=== PATIENT | female | born 1945 | race Caucasian/White ===

== ENCOUNTER → 2018-01-06 | Outpatient (CLI) | payer MEDICARE, BC ==
--- NOTE | 2018-01-07 08:52 | CT ---
EXAMINATION TYPE: CT thor lumbar spine wo con DATE OF EXAM: 01/06/2018 COMPARISON: Lumbar spine x-ray May 27, 2014 HISTORY: Patient complains of chronic mid to low back pain. 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 Other idiopathic sc oliosis. All per order. CT DLP: 675.4 mGycm Automated exposure control for dose reduction was used. CT scan of the thoracic and lumbar spine are performed without contrast. FINDINGS: Osseous structures are demineralized. There is exaggerated thoracic kyphosis. There is levoconvex sco liosis centered in the upper to midthoracic spine. No acute fracture or dislocation is seen. There is mild superior plate height loss T12 level presumed chronic. Spinal canal is grossly preserved. No la rge posterior disc herniations are seen. No significant spurring is identified. Review of axial images shows no significant spinal canal stenosis or neural foraminal narrowing at an y level in the thoracic spine. There is medial bibasilar linear scarring as well as small to moderate size hiatal hernia. There are 2 calculi measuring up to 3 mm in size and right kidney seen best mitch nal image 37. There is ectatic and atherosclerotic thoracic aorta. There are 5 lumbar-type vertebra identified. There is mild height loss involving superior L2, L4, and L5 endplates. No acute fracture is seen. Osseous structures are demineralized. Spinal canal is gross ly preserved on sagittal images without prominent disc herniation. No significant spurring is seen. T here is levoconvex scoliotic curvature centered in the lower lumbar spine. Disc space heights are kera ntained. Review of axial images shows mild uncovertebral facet arthropathy L4-L5 and L5-S1 levels worse on the right side. Spinal canal is grossly preserved. Bilateral neural foramina are patent. No suspicious r etroperitoneal findings are seen. IMPRESSION: DEMINERALIZATION WITH SCOLIOTIC CURVATURE AND MILD CHRONIC COMPRESSION TYPE DEFORMITIES T12, L2, L4, AND L5 LEVELS. NONOBSTRUCTING RIGHT-SIDED RENAL CALCULI INCIDENTALLY NOTED.
== END | disposition home or self-care (01) ==
LOC: RADCTMAIN 10:43
PROVIDERS: ATTEND Physical Medicine & Rehabilitation
DX: M43.8X5 Other specified deforming dorsopathies, thoracolumbar region (principal); M81.0 Age-related osteoporosis without current pathological fracture; M41.85 Other forms of scoliosis, thoracolumbar region
CPT/HCPCS: 72128; 72131

== ENCOUNTER → 2018-02-19 | Outpatient (CLI) | payer MEDICARE, BC ==
--- NOTE | 2018-02-20 07:29 | XR ---
EXAMINATION TYPE: XR KUB DATE OF EXAM: 02/19/2018 COMPARISON: none HISTORY: Pain TECHNIQUE: Single supine KUB image of the abdomen is obtained FINDINGS: Small bowel demonstrates no evidence for dilatation or air fluid levels. Gas and fecal material is seen in non-distended colon. No convincing evidence for pneumoperitoneum. No unusual calcifications. The lung bases are clear. The osseous structures are intact. IMPRESSION: 1. Overall nonobstructive bowel gas pattern.
== END | disposition home or self-care (01) ==
LOC: RADXRMAIN 19:04
PROVIDERS: ATTEND Family Medicine
DX: R10.11 Right upper quadrant pain (principal)
CPT/HCPCS: 74018

== ENCOUNTER → 2018-08-28 | Outpatient (CLI) | payer MEDICARE, BC ==
[2018-08-28 14:04] LABS: Basophils % (A) 1 %; Eosinophils % (A) 1 %; HCT 40.1 % (34.0-46.0); Lymphocytes % (A) 20 %; MCH 30.5 pg (25.0-35.0); MCHC 32.5 g/dL (31.0-37.0); Mean Platelet Volume 7.3; Monocytes # (A) 0.3 k/uL (0-1.0); Monocytes % (A) 6 %; Neutrophils # (A) 3.4 k/uL (1.3-7.7); Neutrophils % (A) 70 %; Platelet Count 249 k/uL (150-450); RBC 4.27 m/uL (3.80-5.40); RDW 13.1 % (11.5-15.5); Reticulocyte % 1.6 % (0.5-2.0); WBC 4.8 k/uL (3.8-10.6)
[2018-08-28 19:15] LABS: Albumin 4.3 g/dL (3.80-4.90); Albumin/Globulin Ratio 2.15 (1.20-2.10); Anion Gap 8.2 mmol/L (4.00-12.00); Calcium 9.2 mg/dL (8.7-10.3); Carbon Dioxide 25.8 mmol/L (21.6-31.8); Potassium 4.3 mmol/L (3.5-5.5); Total Bilirubin 0.4 mg/dL (0.3-1.2); Total Protein 6.3 g/dL (6.2-8.2)
[2018-08-28 19:17] LABS: Iron Saturation 15.15 (12.00-45.00)
[2018-08-28 19:23] LABS: T4, Free (Free Thyroxine) 1.3 ng/dL (0.80-1.80)
== END | disposition home or self-care (01) ==
LOC: LABWHC1 12:34
PROVIDERS: ATTEND Family Medicine
DX: R53.83 Other fatigue (principal); G89.29 Other chronic pain; M54.9 Dorsalgia, unspecified; R60.0 Localized edema
CPT/HCPCS: 36415; 80053; 82728; 83036; 83540; 83550; 84439; 84443; 85025; 85045; 85379

== ENCOUNTER → 2018-09-15 | Outpatient (CLI) | payer MEDICARE, BC ==
--- NOTE | 2018-09-15 15:45 | US ---
EXAMINATION TYPE: US venous doppler duplex LE BI DATE OF EXAM: 09/15/2018 2:02 PM COMPARISON: NONE CLINICAL HISTORY: R60.9 Bilateral LE Edema. No leg swelling redness. Per patient, ankle swelling andreina aterally. No hx of blood clots. on aspirin. SIDE PERFORMED: Bilateral TECHNIQUE: The lower extremity deep venous system is examined utilizing real time linear array sonog marzena with graded compression, doppler sonography and color-flow sonography. VESSELS IMAGED: External Iliac Vein (EIV) Common Femoral Vein Deep Femoral Vein Greater Saphenous Vein * Femoral Vein Popliteal Vein Small Saphenous Vein * Proximal Calf Veins (* superficial vessels) Right Leg: Negative for DVT Left Leg: Negative for DVT IMPRESSION: 1. Bilateral Lower extremity ultrasound negative for deep venous thrombosis.
== END ==
LOC: RADUSWWP 13:11
PROVIDERS: ATTEND Family Medicine
DX: R60.9 Edema, unspecified (principal)
CPT/HCPCS: 93970

== ENCOUNTER 2018-10-20 18:53 | Emergency (ER) | payer MEDICARE, BC ==
[2018-10-20] MEDS ORDERED: SODIUM CHLORIDE 0.9% 1,000 ML IV STA (19:17)
--- NOTE | 2018-10-20 19:42 | ED ---
Arrhythmia/Palpitations HPI - General Chief Complaint: Arrhythmia/Palpitations Stated Complaint: Papitations Time Seen by Provider: 10/20/18 19:16 Source: patient, RN notes reviewed, old records reviewed Mode of arrival: ambulatory Limitations: no limitations - History of Present Illness Initial Comments: This is a 73-year-old female the ER for evaluation. Patient resents today for evaluation regards to palpitations heart racing in her chest, lightheadedness not feeling well. Patient denies any drugs or alcohol abuse recent change in medications. No prior history of heart disease. Patient has strong history of this being similar complaint for she is scheduled for cardiology evaluation later this month. She denies any fevers. No current shortness of breath. No pain MD Complaint: rapid heart beat, "heart racing", palpitations -: month(s) Context: occurred during rest, occurred during exertion Arrhythmia History: other (No history) Associated Symptoms: anxiety Treatments Prior to Arrival: other (None) - Related Data Home Medications Medication Instructions Recorded Confirmed Aspirin EC [Ecotrin] 325 mg PO DAILY 10/20/18 10/20/18 Calcium Carbonate/Vitamin D3 1 tab PO DAILY 10/20/18 10/20/18 [Calcium 600-Vit D3 200 Tablet] Cholecalciferol (Vitamin D3) 2,000 unit PO DAILY 10/20/18 10/20/18 [Vitamin D3] Furosemide [Lasix] 20 mg PO DAILY 10/20/18 10/20/18 Multivitamins, Thera [Multivitamin 1 tab PO DAILY 10/20/18 10/20/18 (formulary)] amLODIPine [Norvasc] 5 mg PO DAILY 10/20/18 10/20/18 cycloSPORINE 0.05% OPHTH SOLN 1 drop BOTH EYES Q12H 10/20/18 10/20/18 [Restasis] traMADol HCL [Ultram] 50 mg PO Q6H PRN 10/20/18 10/20/18 Allergies Allergy/AdvReac Type Severity Reaction Status Date / Time Penicillins Allergy Rash/Hives Verified 10/20/18 19:15 Review of Systems ROS Statement: Those systems with pertinent positive or pertinent negative responses have been documented in the HPI. ROS Other: All systems not noted in ROS Statement are negative. Past Medical History Past Medical History: No Reported History History of Any Multi-Drug Resistant Organisms: None Reported Past Surgical History: Hernia Repair, Hysterectomy, Joint Replacement Additional Past Surgical History / Comment(s): Brain aneurysm repaired Past Psychological History: No Psychological Hx Reported Smoking Status: Former smoker Past Alcohol Use History: Occasional Past Drug Use History: None Reported General Exam Limitations: no limitations General appearance: alert, in no apparent distress Head exam: Present: atraumatic, normocephalic, normal inspection Eye exam: Present: normal appearance, PERRL, EOMI. Absent: scleral icterus, conjunctival injection, periorbital swelling ENT exam: Present: normal exam, mucous membranes moist Neck exam: Present: normal inspection. Absent: tenderness, meningismus, lymphadenopathy Respiratory exam: Present: normal lung sounds bilaterally. Absent: respiratory distress, wheezes, rales, rhonchi, stridor Cardiovascular Exam: Present: regular rate, normal rhythm, normal heart sounds. Absent: systolic murmur, diastolic murmur, rubs, gallop, clicks GI/Abdominal exam: Present: soft, normal bowel sounds. Absent: distended, tenderness, guarding, rebound, rigid Extremities exam: Present: normal inspection, full ROM, normal capillary refill. Absent: tenderness, pedal edema, joint swelling, calf tenderness Back exam: Present: normal inspection Neurological exam: Present: alert, oriented X3, CN II-XII intact Psychiatric exam: Present: normal affect, normal mood Skin exam: Present: warm, dry, intact, normal color. Absent: rash Course Vital Signs 10/20/18 10/20/18 10/20/18 18:59 19:50 20:00 Temperature 97.9 F Pulse Rate 100 87 88 Respiratory 18 18 17 Rate Blood Pressure 151/92 137/100 157/94 O2 Sat by Pulse 98 96 96 Oximetry 10/20/18 10/20/18 10/20/18 20:30 21:00 22:00 Temperature Pulse Rate 88 78 82 Respiratory 18 17 16 Rate Blood Pressure 140/100 158/95 156/103 O2 Sat by Pulse 97 95 97 Oximetry 10/20/18 10/20/18 22:30 23:38 Temperature 98.0 F Pulse Rate 84 90 Respiratory 15 16 Rate Blood Pressure 146/100 150/99 O2 Sat by Pulse 94 L 95 Oximetry - Reevaluation(s) Reevaluation #1: Record is reviewed, noncontributory Reevaluation #2: She is without significant symptoms Spoke with patient regarding the fact that she is asymptomatic currently as well as normal testing, offered admission, patient states she will follow-up as an outpatient as directed EKG Findings - EKG Comments: EKG Findings:: EKG shows sinus rhythm rate of 93, pO2 80, QRS 80, QTC 457 Medical Decision Making - Medical Decision Making 73 female the ER for evaluation patient presents for evaluation regards to palpitations heart racing. Patient states symptoms lasted longer than normal today. Patient does have outpatient schedule evaluation with cardiology for stress test and echo, patient will keep that appointment, does not want to be admitted to the hospital at this time - Lab Data Result diagrams: 10/20/18 19:48 10/20/18 19:48 Lab Results 10/20/18 10/20/18 10/20/18 Range/Units 19:48 19:48 19:48 WBC 5.1 (3.8-10.6) k/uL RBC 4.32 (3.80-5.40) m/uL Hgb 12.9 (11.4-16.0) gm/dL Hct 40.1 (34.0-46.0) % MCV 92.7 (80.0-100.0) fL MCH 29.8 (25.0-35.0) pg MCHC 32.1 (31.0-37.0) g/dL RDW 12.9 (11.5-15.5) % Plt Count 250 (150-450) k/uL Neutrophils % 66 % Lymphocytes % 20 % Monocytes % 8 % Eosinophils % 2 % Basophils % 1 % Neutrophils # 3.4 (1.3-7.7) k/uL Lymphocytes # 1.0 (1.0-4.8) k/uL Monocytes # 0.4 (0-1.0) k/uL Eosinophils # 0.1 (0-0.7) k/uL Basophils # 0.0 (0-0.2) k/uL D-Dimer (<0.60) mg/L FEU Sodium 142 (137-145) mmol/L Potassium 4.1 (3.5-5.1) mmol/L Chloride 106 (98-107) mmol/L Carbon Dioxide 29 (22-30) mmol/L Anion Gap 7 mmol/L BUN 17 (7-17) mg/dL Creatinine 0.60 (0.52-1.04) mg/dL Est GFR (CKD-EPI)AfAm >90 (>60 ml/min/1.73 sqM) Est GFR (CKD-EPI)NonAf >90 (>60 ml/min/1.73 sqM) Glucose 97 (74-99) mg/dL Plasma Lactic Acid Fadi (0.7-2.0) mmol/L Calcium 9.5 (8.4-10.2) mg/dL Phosphorus 3.5 (2.5-4.5) mg/dL Magnesium 2.2 (1.6-2.3) mg/dL Total Bilirubin 0.2 (0.2-1.3) mg/dL AST 24 (14-36) U/L ALT 27 (9-52) U/L Alkaline Phosphatase 99 (38-126) U/L Total Creatine Kinase 32 (30-135) U/L CK-MB (CK-2) 0.7 (0.0-2.4) ng/mL CK-MB (CK-2) Rel Index 2.2 Troponin I <0.012 (0.000-0.034) ng/mL Total Protein 7.1 (6.3-8.2) g/dL Albumin 4.1 (3.5-5.0) g/dL TSH 0.354 L (0.465-4.680) mIU/L Free T4 (0.78-2.19) ng/dL Free T3 pg/mL (2.8-5.3) pg/ml 10/20/18 10/20/18 10/20/18 Range/Units 19:48 19:48 19:48 WBC (3.8-10.6) k/uL RBC (3.80-5.40) m/uL Hgb (11.4-16.0) gm/dL Hct (34.0-46.0) % MCV (80.0-100.0) fL MCH (25.0-35.0) pg MCHC (31.0-37.0) g/dL RDW (11.5-15.5) % Plt Count (150-450) k/uL Neutrophils % % Lymphocytes % % Monocytes % % Eosinophils % % Basophils % % Neutrophils # (1.3-7.7) k/uL Lymphocytes # (1.0-4.8) k/uL Monocytes # (0-1.0) k/uL Eosinophils # (0-0.7) k/uL Basophils # (0-0.2) k/uL D-Dimer 1.27 H (<0.60) mg/L FEU Sodium (137-145) mmol/L Potassium (3.5-5.1) mmol/L Chloride (98-107) mmol/L Carbon Dioxide (22-30) mmol/L Anion Gap mmol/L BUN (7-17) mg/dL Creatinine (0.52-1.04) mg/dL Est GFR (CKD-EPI)AfAm (>60 ml/min/1.73 sqM) Est GFR (CKD-EPI)NonAf (>60 ml/min/1.73 sqM) Glucose (74-99) mg/dL Plasma Lactic Acid Fadi 1.2 (0.7-2.0) mmol/L Calcium (8.4-10.2) mg/dL Phosphorus (2.5-4.5) mg/dL Magnesium (1.6-2.3) mg/dL Total Bilirubin (0.2-1.3) mg/dL AST (14-36) U/L ALT (9-52) U/L Alkaline Phosphatase (38-126) U/L Total Creatine Kinase (30-135) U/L CK-MB (CK-2) (0.0-2.4) ng/mL CK-MB (CK-2) Rel Index Troponin I (0.000-0.034) ng/mL Total Protein (6.3-8.2) g/dL Albumin (3.5-5.0) g/dL TSH (0.465-4.680) mIU/L Free T4 1.18 (0.78-2.19) ng/dL Free T3 pg/mL 4.4 (2.8-5.3) pg/ml - Radiology Data Radiology results: report reviewed (CTA chest is negative for acute disease), image reviewed Disposition Clinical Impression: Palpitations Disposition: HOME SELF-CARE Condition: Good Instructions: Heart Palpitations (ED) Is patient prescribed a controlled substance at d/c from ED?: No Referrals: Dave Green DO [Primary Care Provider] - 1-2 days
[2018-10-20 20:02] LABS: Basophils % (A) 1 %; Eosinophils # (A) 0.1 k/uL (0-0.7); Eosinophils % (A) 2 %; HCT 40.1 % (34.0-46.0); HGB 12.9 gm/dL (11.4-16.0); Lymphocytes % (A) 20 %; MCH 29.8 pg (25.0-35.0); MCHC 32.1 g/dL (31.0-37.0); MCV 92.7 fL (80.0-100.0); Mean Platelet Volume 7.2; Monocytes # (A) 0.4 k/uL (0-1.0); Monocytes % (A) 8 %; Neutrophils # (A) 3.4 k/uL (1.3-7.7); Neutrophils % (A) 66 %; Platelet Count 250 k/uL (150-450); RBC 4.32 m/uL (3.80-5.40); RDW 12.9 % (11.5-15.5); WBC 5.1 k/uL (3.8-10.6)
[2018-10-20 20:17] LABS: ALT 27 U/L (9-52); AST 24 U/L (14-36); Albumin 4.1 g/dL (3.5-5.0); Alkaline Phosphatase 99 U/L (38-126); Anion Gap 7 mmol/L; Blood Urea Nitrogen 17 mg/dL (7-17); Calcium 9.5 mg/dL (8.4-10.2); Carbon Dioxide 29 mmol/L (22-30); Chloride 106 mmol/L (98-107); Glucose 97 mg/dL (74-99); Magnesium 2.2 mg/dL (1.6-2.3); Phosphorus 3.5 mg/dL (2.5-4.5); Potassium 4.1 mmol/L (3.5-5.1); Sodium 142 mmol/L (137-145); Total Bilirubin 0.2 mg/dL (0.2-1.3); Total Protein 7.1 g/dL (6.3-8.2)
[2018-10-20 20:20] LABS: Creatine Kinase 32 U/L (30-135)
[2018-10-20 20:32] LABS: Creatine Kinase MB 0.7 ng/mL (0.0-2.4); Troponin I <0.012 ng/mL (0.000-0.034)
--- NOTE | 2018-10-20 22:40 | CT ---
EXAMINATION TYPE: CT angio chest DATE OF EXAM: 10/20/2018 9:50 PM COMPARISON: None HISTORY: Palpitations today. CT DLP: 196.9 mGycm Automated exposure control for dose reduction was used. CONTRAST: CTA scan of the thorax is performed with IV Contrast, patient injected with 60 mL of Isovue 370, pulm onary embolism protocol. There are 3-D post processed images.. FINDINGS: There is some patchy scarring and subsegmental atelectasis at the lung bases. There is moderate-sized hiatal hernia. There is no pleural effusion. There is no pericardial effusion. Upper abdominal soft tissues are unremarkable. There are no hilar masses. There is no mediastinal adenopathy. The ascending aorta measures 3.5 cm. There is some tortuosity of the thoracic aorta. I see no filling defects in the pulmonary arteries. There is no evidence of aortic dissection. There are large pulmon regino arteries consistent with some pulmonary hypertension. There is osteopenia and thoracolumbar kypho tic deformity. There is anterior wedging of T11 of 40%. IMPRESSION: NO EVIDENCE OF PULMONARY EMBOLISM. MINIMAL SCARRING AND SUBSEGMENTAL ATELECTASIS AT THE LUNG BASES. H IATAL HERNIA. THERE IS PROBABLY SOME COPD. T11 COMPRESSION FRACTURE UNCHANGED.
[2018-10-20 23:39] VITALS: BP 150/99; PULSE 90; RESP 16; TEMP 98
[2018-10-20 23:47] LABS: T4, Free (Free Thyroxine) 1.18 ng/dL (0.78-2.19)
== END 2018-10-21 00:08 | disposition home or self-care (01) ==
LOC: EC 18:53
DX: R00.2 Palpitations (principal); R00.0 Tachycardia, unspecified; R42 Dizziness and giddiness; F41.9 Anxiety disorder, unspecified; Z87.891 Personal history of nicotine dependence; Z88.0 Allergy status to penicillin; Z79.82 Long term (current) use of aspirin; Z79.899 Other long term (current) drug therapy
CPT/HCPCS: 36415; 93005; 85379; 84439; 84481; 80053; 82550; 82553; 83605; 83735; 84100; 84443; 84484; 85025; 71275; 99285; 96360; 96361 ×3; Q9967

== ENCOUNTER → 2018-10-27 | Outpatient (CLI) | payer MEDICARE, BC ==
--- NOTE | 2018-10-27 13:27 | EST ---
EXERCISE STRESS DATE OF SERVICE: 10/27/2018 AGE: 73 SEX: Female HT: 63 WT: 124 PROTOCOL: Gibson STAGE: I DURATION OF EXERCISE: 3 minutes HEART RATE REST: 81 BLOOD PRESSURE REST: 134/94 MAXIMUM HEART RATE ACHIEVED: 127 MAXIMUM BLOOD PRESSURE: 211/62 85% MPHR: 127 100% MPHR: 149 METS: 4.6 INDICATIONS: Atrial fibrillation CLINICAL INFORMATION: Baseline EKG revealed normal sinus rhythm without significant ST-T changes. Patient walked on a standard Gibson protocol for 3 minutes, achieved a maximal heart rate of 127 beats per minute which is 85% of predicted maximal. Resting heart rate was 81 beats per minute. Resting blood pressure was 134/94 and peak blood pressure was 211/62. The patient developed fatigue and shortness of breath but did not have angina. She had hypertensive response to exercise. There was some baseline artifact noted. FINAL IMPRESSION: Limited exercise capacity with hypertensive response to exercise, but no evidence of ischemia based on EKG criteria. Exercise capacity was quite limited. MMODL / IJN: [id number] /
--- NOTE | 2018-10-28 09:25 | ECHOF ---
Referral Reason:I48.91 Atrial Fibrillation MEASUREMENTS -------- HEIGHT: 160.0 cm WEIGHT: 56.2 kg BP: 134/63 RVIDd: 3.2 cm (< 3.3) IVSd: 1.1 cm (0.6 - 1.1) LVIDd: 4.2 cm (3.9 - 5.3) LVPWd: 1.0 cm (0.6 - 1.1) IVSs: 1.6 cm LVIDs: 3.1 cm LVPWs: 1.5 cm LA Diam: 3.3 cm (2.7 - 3.8) LAESV Index (A-L): 17.28 ml/m Ao Diam: 3.5 cm (2.0 - 3.7) AV Cusp: 2.2 cm (1.5 - 2.6) MV EXCURSION: 9.718 mm (> 18.000) MV EF SLOPE: 22 mm/s (70 - 150) EPSS: 0.8 cm MV E Rosalino: 0.78 m/s MV DecT: 275 ms MV A Rosalino: 1.14 m/s MV E/A Ratio: 0.68 RAP: 5.00 mmHg RVSP: 27.81 mmHg FINDINGS -------- Sinus rhythm. This was a technically good study. The left ventricular size is normal. There is borderline concentric left ventricular hypertrophy. Overall left ventricular systolic function is normal with, an EF between 60 - 65 %. The right ventricle is normal in size. Normal LA size by volume 22+/-6 ml/m2. The right atrium is normal in size. The aortic valve is trileaflet and appears structurally normal. Trace amount of aortic regurgitatio n. Mild mitral regurgitation is present. Mild tricuspid regurgitation present. Right ventricular systolic pressure is normal at < 35 mmHg. Trace/mild (physiologic) pulmonic regurgitation. The aortic root size is normal. Normal inferior vena cava with normal inspiratory collapse consistent with estimated right atrial pre ssure of 5 mmHg. The inferior vena cava is mildly dilated. There is no pericardial effusion. CONCLUSIONS -------- 1. Sinus rhythm. 2. This was a technically good study. 3. The left ventricular size is normal. 4. There is borderline concentric left ventricular hypertrophy. 5. Overall left ventricular systolic function is normal with, an EF between 60 - 65 %. 6. The right ventricle is normal in size. 7. Normal LA size by volume 22+/-6 ml/m2. 8. The right atrium is normal in size. 9. The aortic valve is trileaflet and appears structurally normal. 10. Trace amount of aortic regurgitation. 11. Mild mitral regurgitation is present. 12. Mild tricuspid regurgitation present. 13. Right ventricular systolic pressure is normal at < 35 mmHg. 14. Trace/mild (physiologic) pulmonic regurgitation. 15. The aortic root size is normal. 16. Normal inferior vena cava with normal inspiratory collapse consistent with estimated right atrial pressure of 5 mmHg. 17. The inferior vena cava is mildly dilated. 18. There is no pericardial effusion. CAR HOP: Rose Mary Randle RDCS
== END | disposition home or self-care (01) ==
LOC: RADNMMAIN 10:23
PROVIDERS: ATTEND Family Medicine
DX: I48.91 Unspecified atrial fibrillation (principal)
CPT/HCPCS: 93017; 93270; 93271; 93306

== ENCOUNTER 2018-11-20 11:46 | Day surgery (SDC) | payer MEDICARE, BC ==
[2018-11-18 12:51] VITALS: BMI 22.6
[~2018-11-20 11:46] MED LIST: LACTATED RINGERS 1,000 ML IV SCH; LIDOCAINE 1% 20 ML VIAL (10MG/ML) FOR IV START INTRADERMA PRN
[2018-11-20 12:35] VITALS: RESP 16; TEMP 97.1
[2018-11-20] MEDS ORDERED: MIDAZOLAM 2 MG/2 ML VIAL ONE (12:45)
[2018-11-20] MEDS ORDERED: PROPOFOL 10 MG/ML 20 ML VIAL IV ONE (12:45)
[2018-11-20 13:36] VITALS: BP 149/90; PULSE 88
--- NOTE | 2018-11-20 13:56 | P.PCN ---
Date of Procedure: 11/20/18 Procedure(s) Performed: BRIEF HISTORY: Patient is a 73-year-old pleasant white female, scheduled for an elective colonoscopy as a part of screening for colonic neoplasia. She was recently noted to have positive cologuard on recent stool testing. PROCEDURE PERFORMED: Colonoscopy with snare polypectomy. PREOPERATIVE DIAGNOSIS: Screening for colon cancer. IV sedation per Anesthesia. PROCEDURE: After informed consent was obtained, the patient, was brought into the endoscopy unit. IV sedation was administered by Anesthesia under continuous monitoring. Digital rectal examination was normal. Initially the Olympus CF- 160 flexible video colonoscope was then inserted in the rectum, gradually advanced into the cecum without any difficulty. Careful examination was performed as the scope was gradually being withdrawn. Ileocecal valve and the appendiceal orifice were visualized and appeared normal. Prep was excellent. Mucosa of the cecum, ascending colon, transverse colon, descending colon, appeared normal. In the distal sigmoid colon at 25 cm from the anal verge there was a 2.5-3 cm peduncular related polyp that was removed by snare polypectomy. Rest of the sigmoid colon and rectum appeared normal. The flexion was performed in the rectum, no lesions were seen and patient tolerated the procedure well. IMPRESSION: 3 cm pedunculated distal sigmoid colon polyp status post polypectomy Rest of the colon appeared normal RECOMMENDATIONS: Findings of this examination were discussed with the patient as well as her family. She was advised to follow with the biopsy results. If the biopsy shows adenoma she can have a repeat colonoscopy in 3 years.
== END 2018-11-20 14:19 | disposition home or self-care (01) ==
LOC: ORWHC2ENDO 11:46
PROVIDERS: ATTEND Internal Medicine Gastroenterology
DX: Z12.11 Encounter for screening for malignant neoplasm of colon (principal); D12.5 Benign neoplasm of sigmoid colon; M19.90 Unspecified osteoarthritis, unspecified site; I10 Essential (primary) hypertension; Z88.0 Allergy status to penicillin; K21.9 Gastro-esophageal reflux disease without esophagitis; Z79.82 Long term (current) use of aspirin; Z79.891 Long term (current) use of opiate analgesic; Z79.899 Other long term (current) drug therapy
CPT/HCPCS: 88305; 45385; J2250; J2704

== ENCOUNTER → 2019-02-17 | Outpatient (CLI) | payer MEDICARE, BC ==
[2019-02-17 16:22] LABS: HCT 37.8 % (34.0-46.0); HGB 12.7 gm/dL (11.4-16.0); MCH 30.5 pg (25.0-35.0); MCHC 33.5 g/dL (31.0-37.0); MCV 90.8 fL (80.0-100.0); Mean Platelet Volume 7.8; Platelet Count 267 k/uL (150-450); RBC 4.16 m/uL (3.80-5.40); RDW 13.9 % (11.5-15.5); WBC 5.4 k/uL (3.8-10.6)
[2019-02-18 00:34] LABS: ALT 27 U/L (8-44); AST 28 U/L (13-35); Albumin/Globulin Ratio 2.39 (1.60-3.17); Alkaline Phosphatase 98 U/L (41-126); Bilirubin, Conjugated <0.20 mg/dL (0.20-0.40); Globulin 1.8 g/dL (1.6-3.3); Total Bilirubin 0.3 mg/dL (0.2-1.2); Total Protein 6.1 g/dL (6.2-8.2)
== END | disposition home or self-care (01) ==
LOC: LABWHC1 14:43
PROVIDERS: ATTEND Internal Medicine
DX: E05.90 Thyrotoxicosis, unspecified without thyrotoxic crisis or storm (principal)
CPT/HCPCS: 36415; 80076; 84439; 84443; 84481; 85027

== ENCOUNTER → 2019-05-20 | Outpatient (CLI) | payer MEDICARE, BC ==
[2019-05-20 14:45] LABS: HCT 41.1 % (34.0-46.0); HGB 13.3 gm/dL (11.4-16.0); MCH 30.8 pg (25.0-35.0); MCHC 32.5 g/dL (31.0-37.0); MCV 94.8 fL (80.0-100.0); Mean Platelet Volume 7.3; Platelet Count 271 k/uL (150-450); RBC 4.33 m/uL (3.80-5.40); RDW 13.1 % (11.5-15.5); WBC 5.8 k/uL (3.8-10.6)
[2019-05-20 19:06] LABS: ALT 21 U/L (8-44); AST 28 U/L (13-35); Albumin/Globulin Ratio 2.26 (1.60-3.17); Alkaline Phosphatase 108 U/L (41-126); Bilirubin, Conjugated <0.20 mg/dL (0.20-0.40); Globulin 1.9 g/dL (1.6-3.3); Total Bilirubin 0.3 mg/dL (0.3-1.2); Total Protein 6.2 g/dL (6.2-8.2)
== END | disposition home or self-care (01) ==
LOC: LABWHC1 13:53
PROVIDERS: ATTEND Internal Medicine
DX: E05.90 Thyrotoxicosis, unspecified without thyrotoxic crisis or storm (principal)
CPT/HCPCS: 36415; 80076; 84439; 84443; 84481; 85027

== ENCOUNTER → 2019-09-23 | Outpatient (CLI) | payer MEDICARE, BC ==
[2019-09-23 16:21] LABS: HCT 41.1 % (34.0-46.0); HGB 13.5 gm/dL (11.4-16.0); MCH 31.1 pg (25.0-35.0); MCHC 32.8 g/dL (31.0-37.0); MCV 94.8 fL (80.0-100.0); Mean Platelet Volume 7.2; Platelet Count 258 k/uL (150-450); RBC 4.34 m/uL (3.80-5.40); RDW 12.3 % (11.5-15.5); WBC 6.7 k/uL (3.8-10.6)
[2019-09-24 00:24] LABS: ALT 29 U/L (8-44); AST 29 U/L (13-35); Alkaline Phosphatase 108 U/L (41-126); Bilirubin, Conjugated <0.20 mg/dL (0.20-0.40); Total Bilirubin 0.3 mg/dL (0.3-1.2); Total Protein 6.4 g/dL (6.2-8.2)
== END | disposition home or self-care (01) ==
LOC: LABWHC1 15:05
PROVIDERS: ATTEND Internal Medicine
DX: E05.90 Thyrotoxicosis, unspecified without thyrotoxic crisis or storm (principal)
CPT/HCPCS: 36415; 80076; 84439; 84443; 84481; 85027

== ENCOUNTER → 2020-03-14 | Outpatient (CLI) | payer MEDICARE, BC ==
[2020-03-14 14:20] LABS: HCT 40.7 % (34.0-46.0); MCH 30.9 pg (25.0-35.0); MCHC 31.9 g/dL (31.0-37.0); MCV 96.8 fL (80.0-100.0); Platelet Count 253 k/uL (150-450); RDW 12.3 % (11.5-15.5); WBC 5.6 k/uL (3.8-10.6)
[2020-03-14 19:12] LABS: ALT 23 U/L (8-44); AST 25 U/L (13-35); Albumin/Globulin Ratio 2.05 (1.60-3.17); Alkaline Phosphatase 95 U/L (41-126); Bilirubin, Conjugated <0.20 mg/dL (0.20-0.40); Globulin 2.1 g/dL (1.6-3.3); Total Bilirubin 0.4 mg/dL (0.2-1.2); Total Protein 6.4 g/dL (6.2-8.2)
== END | disposition home or self-care (01) ==
LOC: LABWHC1 12:15
PROVIDERS: ATTEND Internal Medicine
DX: E05.90 Thyrotoxicosis, unspecified without thyrotoxic crisis or storm (principal); E55.9 Vitamin D deficiency, unspecified
CPT/HCPCS: 36415; 80076; 82306; 84439; 84443; 84481; 85027

== ENCOUNTER → 2020-08-10 | Outpatient (CLI) | payer MEDICARE, BC ==
--- NOTE | 2020-08-11 06:28 | MR ---
EXAMINATION TYPE: MR angio neck wo/w con DATE OF EXAM: 08/10/2020 COMPARISON: CTA chest October 20, 2018 HISTORY: Occipital neuralgia TECHNIQUE: Time of flight images focusing on the [place] were performed without contrast.. 2-D and 3-D postprocessing imaging is performed on independent workstation and reviewed. FINDINGS: There is normal three-vessel origin from aortic arch. Right common carotid artery shows nor mal origin from right brachiocephalic artery there is no significant focal stenosis in common or inte rnal carotid arteries bilaterally including a level of bilateral carotid bulbs. Some tortuous course is noted bilaterally. There are patent external carotid arteries bilaterally without significant sten osis. There is codominant vertebrobasilar system. Vertebral arteries are patent to basilar junction. No sig nificant stenosis. IMPRESSION: No significant stenosis in common or internal carotid arteries bilaterally. Unremarkable study.
== END | disposition home or self-care (01) ==
LOC: RADMRIMAIN 11:32
PROVIDERS: ATTEND Family Medicine
DX: M54.81 Occipital neuralgia (principal)
CPT/HCPCS: 70549; A9585

== ENCOUNTER → 2020-11-02 | Outpatient (CLI) | payer MEDICARE, BC ==
[2020-11-02 14:57] LABS: HCT 40.6 % (34.0-46.0); HGB 13.8 gm/dL (11.4-16.0); MCH 32.6 pg (25.0-35.0); MCV 95.9 fL (80.0-100.0); Mean Platelet Volume 7.6; Platelet Count 269 k/uL (150-450); RBC 4.23 m/uL (3.80-5.40); RDW 12.1 % (11.5-15.5); WBC 6.8 k/uL (3.8-10.6)
[2020-11-03 02:48] LABS: T4, Free (Free Thyroxine) 1.2 ng/dL (0.80-1.80)
== END | disposition home or self-care (01) ==
LOC: LABWHC1 13:59
PROVIDERS: ATTEND Internal Medicine
DX: E05.90 Thyrotoxicosis, unspecified without thyrotoxic crisis or storm (principal)
CPT/HCPCS: 36415; 84439; 84443; 84450; 84460; 84481; 85027

== ENCOUNTER → 2021-03-13 | Outpatient (CLI) | payer MEDICARE, BC ==
[2021-03-13 23:21] LABS: HCT 38.8 % (37.2-46.3); HGB 12.6 g/dL (12.0-15.0); MCHC 32.5 g/dL (32.0-37.0); MCV 95.6 fL (80.0-97.0); Platelet Count 251 X 10*3/uL (140-440); RBC 4.06 X 10*6/uL (4.10-5.20); RDW 12.5 % (11.5-14.5); WBC 5.63 X 10*3/uL (4.50-10.00)
[2021-03-14 13:41] LABS: T4, Free (Free Thyroxine) 1.1 ng/dL (0.80-1.80)
== END | disposition home or self-care (01) ==
LOC: LABWHC1 15:02
PROVIDERS: ATTEND Internal Medicine
DX: E05.90 Thyrotoxicosis, unspecified without thyrotoxic crisis or storm (principal)
CPT/HCPCS: 36415; 84439; 84443; 84450; 84460; 84481; 85027

== ENCOUNTER 2021-09-12 20:35 | Emergency (ER) | payer MEDICARE, BC ==
--- NOTE | 2021-09-12 22:02 | ED ---
Arrhythmia/Palpitations HPI - General Chief Complaint: Arrhythmia/Palpitations Stated Complaint: Chest Pain, High Blood Pressure Time Seen by Provider: 09/12/21 21:31 Source: patient, RN notes reviewed, old records reviewed Mode of arrival: wheelchair Limitations: no limitations - History of Present Illness Initial Comments: This is a 76-year-old female with a significant history of brain aneurysm and ataxia coming a palpitations chest pain and possible arrhythmia. Patient states symptoms are not improving events palpitations that were significant worse. Symptoms may have been on and off for years but she is feels that they're worse night. She can't rest and relax without having significant chest pain shortness of breath she can't walk without dizziness losing her balance. Patient became more anxious with a ladder presents DF for evaluation. Patient also has her blood pressure is significantly elevated today it was her main impetus of coming to the hospital MD Complaint: rapid heart beat, "heart racing", palpitations -: hour(s) Associated Symptoms: chest pain, shortness of breath, anxiety Treatments Prior to Arrival: other (none) - Related Data Home Medications Medication Instructions Recorded Confirmed amLODIPine [Norvasc] 5 mg PO DAILY 10/20/18 09/12/21 cycloSPORINE 0.05% OPHTH SOLN 1 drop BOTH EYES BID 10/20/18 09/12/21 [Restasis] traMADol HCL [Ultram] 50 mg PO TID PRN 10/20/18 09/12/21 Aspirin EC [Ecotrin Low Dose] 81 mg PO DAILY 09/12/21 09/12/21 Fluticasone Nasal [place] [Flonase 1 spray EA NOSTRIL DAILY PRN 09/12/21 09/12/21 Nasal [place]] Methimazole [Tapazole] 5 mg PO DAILY 09/12/21 09/12/21 Allergies Allergy/AdvReac Type Severity Reaction Status Date / Time Penicillins Allergy Rash/Hives Verified 09/12/21 23:12 Review of Systems ROS Statement: Those systems with pertinent positive or pertinent negative responses have been documented in the HPI. ROS Other: All systems not noted in ROS Statement are negative. Past Medical History Past Medical History: GERD/Reflux, Hypertension, Osteoarthritis (OA) Additional Past Medical History / Comment(s): Heart palpitations, used a heart monitor for a short time, swelling in lower extrem's. Blood in stool. Problems with constipation. Osteoporosis. Sjogren's Syndrome. History of Any Multi-Drug Resistant Organisms: None Reported Past Surgical History: Hernia Repair, Hysterectomy, Joint Replacement Additional Past Surgical History / Comment(s): Surgery for brain aneurysm x 2. Partial thyroidectomy. Past Anesthesia/Blood Transfusion Reactions: No Reported Reaction Past Psychological History: No Psychological Hx Reported Smoking Status: Former smoker Past Alcohol Use History: Occasional Past Drug Use History: None Reported - Past Family History Mother Family Medical History: No Reported History General Exam Limitations: no limitations General appearance: alert, in no apparent distress, anxious Head exam: Present: atraumatic, normocephalic, normal inspection Eye exam: Present: normal appearance, PERRL, EOMI. Absent: scleral icterus, conjunctival injection, periorbital swelling ENT exam: Present: normal exam, mucous membranes moist Neck exam: Present: normal inspection. Absent: tenderness, meningismus, lymphadenopathy Respiratory exam: Present: normal lung sounds bilaterally. Absent: respiratory distress, wheezes, rales, rhonchi, stridor Cardiovascular Exam: Present: regular rate, normal rhythm, normal heart sounds. Absent: systolic murmur, diastolic murmur, rubs, gallop, clicks GI/Abdominal exam: Present: soft, normal bowel sounds. Absent: distended, tenderness, guarding, rebound, rigid Extremities exam: Present: normal inspection, full ROM, normal capillary refill. Absent: tenderness, pedal edema, joint swelling, calf tenderness Back exam: Present: normal inspection Neurological exam: Present: alert, oriented X3, CN II-XII intact Psychiatric exam: Present: normal affect, normal mood Skin exam: Present: warm, dry, intact, normal color. Absent: rash Course Vital Signs 09/12/21 09/12/21 09/12/21 20:56 21:03 23:20 Temperature 98.3 F 98.0 F Pulse Rate 84 85 Pulse Rate [ 86 Juice Tester ] Respiratory 20 18 Rate Blood Pressure 156/91 152/100 O2 Sat by Pulse 97 96 Oximetry 09/13/21 09/13/21 00:30 02:10 Temperature 97.9 F Pulse Rate 68 84 Pulse Rate [ Juice Tester ] Respiratory 18 18 Rate Blood Pressure 163/104 143/102 O2 Sat by Pulse 95 96 Oximetry - Reevaluation(s) Reevaluation #1: Medical record is reviewed Symptoms are improved here in the emergency department Patient is informed of results and questions answered EKG Findings - EKG Comments: EKG Findings:: EKG is sinus rhythm 81 CA 236 QRS 80 QTc 443 Medical Decision Making - Medical Decision Making 76 female to the emergency department for hypertension and palpitations. Symptoms are improved here in the ER. Patient feels comfortable with discharge and can be discharged home - Lab Data Result diagrams: 09/12/21 23:10 09/12/21 23:10 Lab Results 09/12/21 09/12/21 09/12/21 Range/Units 23:10 23:10 23:10 WBC 6.8 (3.8-10.6) k/uL RBC 4.12 (3.80-5.40) m/uL Hgb 13.1 (11.4-16.0) gm/dL Hct 38.9 (34.0-46.0) % MCV 94.4 (80.0-100.0) fL MCH 31.7 (25.0-35.0) pg MCHC 33.6 (31.0-37.0) g/dL RDW 12.7 (11.5-15.5) % Plt Count 279 (150-450) k/uL MPV 8.3 Neutrophils % 69 % Lymphocytes % 20 % Monocytes % 7 % Eosinophils % 1 % Basophils % 1 % Neutrophils # 4.7 (1.3-7.7) k/uL Lymphocytes # 1.4 (1.0-4.8) k/uL Monocytes # 0.5 (0-1.0) k/uL Eosinophils # 0.1 (0-0.7) k/uL Basophils # 0.0 (0-0.2) k/uL PT 10.5 (9.0-12.0) sec INR 1.0 (<1.2) APTT 26.2 (22.0-30.0) sec D-Dimer 1.78 H (<0.60) mg/L FEU Sodium 137 (137-145) mmol/L Potassium 4.1 (3.5-5.1) mmol/L Chloride 105 (98-107) mmol/L Carbon Dioxide 24 (22-30) mmol/L Anion Gap 8 mmol/L BUN 16 (7-17) mg/dL Creatinine 0.56 (0.52-1.04) mg/dL Est GFR (CKD-EPI)AfAm >90 (>60 ml/min/1.73 sqM) Est GFR (CKD-EPI)NonAf >90 (>60 ml/min/1.73 sqM) Glucose 90 (74-99) mg/dL Plasma Lactic Acid Fadi (0.7-2.0) mmol/L Calcium 9.9 (8.4-10.2) mg/dL Phosphorus 3.6 (2.5-4.5) mg/dL Magnesium 2.1 (1.6-2.3) mg/dL Total Bilirubin 0.4 (0.2-1.3) mg/dL AST 34 (14-36) U/L ALT 23 (4-34) U/L Alkaline Phosphatase 94 (38-126) U/L Troponin I (0.000-0.034) ng/mL NT-Pro-B Natriuret Pep pg/mL Total Protein 7.6 (6.3-8.2) g/dL Albumin 4.5 (3.5-5.0) g/dL TSH 3.290 (0.465-4.680) mIU/L 09/12/21 09/12/21 09/12/21 Range/Units 23:10 23:10 23:10 WBC (3.8-10.6) k/uL RBC (3.80-5.40) m/uL Hgb (11.4-16.0) gm/dL Hct (34.0-46.0) % MCV (80.0-100.0) fL MCH (25.0-35.0) pg MCHC (31.0-37.0) g/dL RDW (11.5-15.5) % Plt Count (150-450) k/uL MPV Neutrophils % % Lymphocytes % % Monocytes % % Eosinophils % % Basophils % % Neutrophils # (1.3-7.7) k/uL Lymphocytes # (1.0-4.8) k/uL Monocytes # (0-1.0) k/uL Eosinophils # (0-0.7) k/uL Basophils # (0-0.2) k/uL PT (9.0-12.0) sec INR (<1.2) APTT (22.0-30.0) sec D-Dimer (<0.60) mg/L FEU Sodium (137-145) mmol/L Potassium (3.5-5.1) mmol/L Chloride (98-107) mmol/L Carbon Dioxide (22-30) mmol/L Anion Gap mmol/L BUN (7-17) mg/dL Creatinine (0.52-1.04) mg/dL Est GFR (CKD-EPI)AfAm (>60 ml/min/1.73 sqM) Est GFR (CKD-EPI)NonAf (>60 ml/min/1.73 sqM) Glucose (74-99) mg/dL Plasma Lactic Acid Fadi 0.7 (0.7-2.0) mmol/L Calcium (8.4-10.2) mg/dL Phosphorus (2.5-4.5) mg/dL Magnesium (1.6-2.3) mg/dL Total Bilirubin (0.2-1.3) mg/dL AST (14-36) U/L ALT (4-34) U/L Alkaline Phosphatase (38-126) U/L Troponin I <0.012 (0.000-0.034) ng/mL NT-Pro-B Natriuret Pep 179 pg/mL Total Protein (6.3-8.2) g/dL Albumin (3.5-5.0) g/dL TSH (0.465-4.680) mIU/L - Radiology Data Radiology results: report reviewed (CT brain CT chest negative for acute d isease), image reviewed Disposition Clinical Impression: Palpitations, Tachycardia, Hypertension Disposition: HOME SELF-CARE Condition: Fair Instructions (If sedation given, give patient instructions): Heart Palpitations (ED) Is patient prescribed a controlled substance at d/c from ED?: No Referrals: Dave Green DO [Primary Care Provider] - 1-2 days
--- NOTE | 2021-09-12 23:42 | CT ---
EXAMINATION TYPE: CT brain wo con DATE OF EXAM: 09/12/2021 COMPARISON: 06/08/2013 HISTORY: high b/p. hx of aneurysm CT DLP: 1192.4 mGycm Automated exposure control for dose reduction was used. There is metal artifact from previous aneurysm surgery at the anterior and posterior [place] . There is no mass effect nor midline shift. There is no sign of intracranial hemorrhage. Calvarium i s intact. There is normal aeration of the mastoid sinuses. Skull base is intact. IMPRESSION: Negative CT scan of the brain. No change.
[2021-09-12 23:44] LABS: Basophils % (A) 1 %; Eosinophils # (A) 0.1 k/uL (0-0.7); Eosinophils % (A) 1 %; HCT 38.9 % (34.0-46.0); HGB 13.1 gm/dL (11.4-16.0); Lymphocytes # (A) 1.4 k/uL (1.0-4.8); Lymphocytes % (A) 20 %; MCH 31.7 pg (25.0-35.0); MCHC 33.6 g/dL (31.0-37.0); MCV 94.4 fL (80.0-100.0); Mean Platelet Volume 8.3; Monocytes # (A) 0.5 k/uL (0-1.0); Monocytes % (A) 7 %; Neutrophils # (A) 4.7 k/uL (1.3-7.7); Neutrophils % (A) 69 %; Platelet Count 279 k/uL (150-450); RBC 4.12 m/uL (3.80-5.40); RDW 12.7 % (11.5-15.5); WBC 6.8 k/uL (3.8-10.6)
[2021-09-12 23:58] LABS: ALT 23 U/L (4-34); AST 34 U/L (14-36); African American GFR (CKD) >90 (>60 ml/min/1.73 sqM); Albumin 4.5 g/dL (3.5-5.0); Alkaline Phosphatase 94 U/L (38-126); Anion Gap 8 mmol/L; Blood Urea Nitrogen 16 mg/dL (7-17); Calcium 9.9 mg/dL (8.4-10.2); Carbon Dioxide 24 mmol/L (22-30); Chloride 105 mmol/L (98-107); Glucose 90 mg/dL (74-99); Magnesium 2.1 mg/dL (1.6-2.3); Non-African American GFR(CKD) >90 (>60 ml/min/1.73 sqM); Phosphorus 3.6 mg/dL (2.5-4.5); Potassium 4.1 mmol/L (3.5-5.1); Sodium 137 mmol/L (137-145); Total Bilirubin 0.4 mg/dL (0.2-1.3); Total Protein 7.6 g/dL (6.3-8.2)
[2021-09-13 00:25] LABS: Partial Thromboplastin Time 26.2 sec (22.0-30.0); Prothrombin Time 10.5 sec (9.0-12.0)
[2021-09-13 00:34] VITALS: RESP 18
--- NOTE | 2021-09-13 01:40 | CT ---
EXAMINATION TYPE: CT angio chest DATE OF EXAM: 09/13/2021 COMPARISON: 10/20/2018 HISTORY: elevated d-dimer CT DLP: 208.2 mGycm Automated exposure control for dose reduction was used. CONTRAST: Performed with IV Contrast, patient injected with 75 mL of Isovue 370. There are 3-D post processed images. Images obtained from the thoracic inlet to the diaphragm with IV contrast. The lungs are clear of consolidation. There is no evidence of a pulmonary mass. There is mild subsegm ental atelectasis in the lower lung royal. There is no pleural effusion. There is large hiatal herni a. Heart size is fairly normal. There is no pericardial effusion. There is no mediastinal adenopathy. There are no hilar masses. There is normal contrast opacification of the pulmonary arteries. There are no filling defects. The a scending aorta measures 3.8 cm. There is no dissection. There is thoracic kyphotic deformity with anterior wedging of T11 and T12 vertebra up to 50%. There i s wedging of T7 vertebra 25%. IMPRESSION: No evidence of pulmonary embolism. Hiatal hernia. Subsegmental atelectasis. Old compression fractures . No significant overall change compared to old exam.
[2021-09-13 02:15] VITALS: BP 143/102; PULSE 84; TEMP 97.9
== END 2021-09-13 02:10 | disposition home or self-care (01) ==
LOC: EC 20:35
DX: R00.2 Palpitations (principal); R00.0 Tachycardia, unspecified; I10 Essential (primary) hypertension; K21.9 Gastro-esophageal reflux disease without esophagitis; M19.90 Unspecified osteoarthritis, unspecified site; Z87.891 Personal history of nicotine dependence; Z72.89 Other problems related to lifestyle; Z79.82 Long term (current) use of aspirin; Z79.899 Other long term (current) drug therapy
CPT/HCPCS: 36415; 93005; 85379; 83880; 80053; 83605; 83735; 84100; 84443; 84484; 85025; 85610; 85730; 70450; 71275; 99285; Q9967

== ENCOUNTER → 2021-11-27 | Outpatient (CLI) | payer MEDICARE, BC ==
[2021-11-27 23:29] LABS: HGB 11.7 g/dL (12.0-15.0); MCH 30.4 pg (27.0-32.0); MCHC 31.6 g/dL (32.0-37.0); MCV 96.1 fL (80.0-97.0); Mean Platelet Volume 11.3 fL (9.5-12.2); NRBC Per 100 WBC 0 /100 WBCS (0.0-0.0); Platelet Count 285 X 10*3/uL (140-440); RBC 3.85 X 10*6/uL (4.10-5.20); RDW 12.9 % (11.5-14.5)
[2021-11-27 23:57] LABS: T4, Free (Free Thyroxine) 1.28 ng/dL (0.800-1.800)
== END | disposition home or self-care (01) ==
LOC: LABWHC1 15:51
PROVIDERS: ATTEND Internal Medicine
DX: E55.9 Vitamin D deficiency, unspecified (principal); E05.90 Thyrotoxicosis, unspecified without thyrotoxic crisis or storm
CPT/HCPCS: 36415; 82306; 84439; 84443; 84450; 84460; 84481; 85027

== ENCOUNTER → 2022-03-06 | Outpatient (CLI) | payer MEDICARE, BC ==
[2022-03-06 22:20] LABS: HCT 38.9 % (37.2-46.3); HGB 12.5 g/dL (12.0-15.0); MCH 30.2 pg (27.0-32.0); MCHC 32.1 g/dL (32.0-37.0); Mean Platelet Volume 11.1 fL (9.5-12.2); NRBC Per 100 WBC 0 /100 WBCS (0.0-0.0); Platelet Count 229 X 10*3/uL (140-440); RBC 4.14 X 10*6/uL (4.10-5.20); RDW 13.8 % (11.5-14.5); WBC 6.15 X 10*3/uL (4.50-10.00)
[2022-03-07 00:01] LABS: T4, Free (Free Thyroxine) 1.5 ng/dL (0.800-1.800)
== END | disposition home or self-care (01) ==
LOC: LABWHC1 13:37
PROVIDERS: ATTEND Internal Medicine
DX: E05.90 Thyrotoxicosis, unspecified without thyrotoxic crisis or storm (principal)
CPT/HCPCS: 36415; 84439; 84443; 84450; 84460; 84481; 85027

== ENCOUNTER 2023-03-07 14:41 | Observation (INO) | payer MEDICARE, BC ==
[2023-03-07] MEDS ORDERED: SODIUM CHLORIDE 0.9% 1,000 ML IV STA (14:54)
--- NOTE | 2023-03-07 14:54 | ED ---
Dizziness HPI - General Chief Complaint: Dizziness Stated Complaint: Dizziness Time Seen by Provider: 03/07/23 14:54 Source: patient, EMS, RN notes reviewed, old records reviewed Mode of arrival: EMS Limitations: no limitations - History of Present Illness Initial Comments: This is a 77-year-old female the emergency department today. She presents today for significant dizziness room spinning off-balance. Patient can ambulate without finishing a fall. She has had history of inner ear issues and these are smaller severe. Patient has no current headache does admit to blood pressure being more elevated lately. MD Complaint: dizziness, difficulty walking -: days(s) Timing: sudden onset Description: sense of movement, "room spinning", off-balance, difficulty walking History of Same: Yes History of Trauma: No Severity: moderate Improves With: nothing Worsens With: movement Associated Symptoms: ataxia - Related Data Home Medications Medication Instructions Recorded Confirmed cycloSPORINE 0.05% OPHTH SOLN 1 drop BOTH EYES DIRECTED 10/20/18 03/07/23 [Restasis] traMADol HCL [Ultram] 50 mg PO BID PRN 10/20/18 03/07/23 Aspirin EC [Ecotrin Low Dose] 81 mg PO DAILY 09/12/21 03/07/23 methIMAzole [Tapazole] 5 mg PO W/SUPPER 09/12/21 03/07/23 Losartan Potassium 100 mg PO DAILY 03/07/23 03/07/23 carvediloL [Coreg] 12.5 mg PO BID 03/07/23 03/07/23 Allergies Allergy/AdvReac Type Severity Reaction Status Date / Time Penicillins Allergy Rash/Hives Verified 03/07/23 15:09 Review of Systems ROS Statement: Those systems with pertinent positive or pertinent negative responses have been documented in the HPI. ROS Other: All systems not noted in ROS Statement are negative. Past Medical History Past Medical History: GERD/Reflux, Hypertension, Osteoarthritis (OA) Additional Past Medical History / Comment(s): Heart palpitations, used a heart monitor for a short time, swelling in lower extrem's. Blood in stool. Problems with constipation. Osteoporosis. Sjogren's Syndrome. History of Any Multi-Drug Resistant Organisms: None Reported Past Surgical History: Hernia Repair, Hysterectomy, Joint Replacement Additional Past Surgical History / Comment(s): Surgery for brain aneurysm x 2. Partial thyroidectomy. Past Anesthesia/Blood Transfusion Reactions: No Reported Reaction Past Psychological History: No Psychological Hx Reported Smoking Status: Former smoker Past Alcohol Use History: Occasional Past Drug Use History: None Reported - Past Family History Mother Family Medical History: No Reported History General Exam Limitations: no limitations General appearance: alert, in no apparent distress Head exam: Present: atraumatic, normocephalic, normal inspection Eye exam: Present: normal appearance, PERRL, EOMI, nystagmus. Absent: scleral icterus, conjunctival injection, periorbital swelling ENT exam: Present: normal exam, mucous membranes moist Neck exam: Present: normal inspection. Absent: tenderness, meningismus, lymphadenopathy Respiratory exam: Present: normal lung sounds bilaterally. Absent: respiratory distress, wheezes, rales, rhonchi, stridor Cardiovascular Exam: Present: regular rate, normal rhythm, normal heart sounds. Absent: systolic murmur, diastolic murmur, rubs, gallop, clicks GI/Abdominal exam: Present: soft, normal bowel sounds. Absent: distended, tenderness, guarding, rebound, rigid Extremities exam: Present: normal inspection, full ROM, normal capillary refill. Absent: tenderness, pedal edema, joint swelling, calf tenderness Back exam: Present: normal inspection Neurological exam: Present: alert, oriented X3, CN II-XII intact Psychiatric exam: Present: normal affect, normal mood Skin exam: Present: warm, dry, intact, normal color. Absent: rash Course Vital Signs 03/07/23 03/07/23 03/07/23 14:47 17:10 18:00 Temperature 97.8 F Pulse Rate 65 70 72 Respiratory 20 18 18 Rate Blood Pressure 180/107 185/106 O2 Sat by Pulse 96 100 96 Oximetry - Reevaluation(s) Reevaluation #1: 03/07/23 20:38 [facility] records reviewed Reevaluation #2: 03/07/23 20:38 Symptoms are unchanged Reevaluation #3: 03/07/23 20:38 Patient informed results questions answered Reevaluation #4: 03/07/23 20:38 Was pt. sent in by a medical professional or institution? @ -no Did you speak to anyone other than the patient for history? @ -no Did you review nursing and triage notes? @ -agree Were old charts reviewed? @ -no Differential Diagnosis? @ -prior EKG interpreted by me (3pts min.)? @ -yes X-rays interpreted by me (1pt min.)? @ -yes CT interpreted by me (1pt min.)? @ -no U/S interpreted by me (1pt. min.)? @ -no What testing was considered but not performed? (CT, X-rays, U/S, labs)? Why? @ -no What meds were considered but not given? Why? @ -no Did you discuss the management of the patient with other professionals? @ -no Did you reconcile home meds? @ -no Was smoking cessation discussed for >3mins.? @ -no Was critical care preformed (if so, how long)? @ -no Were there social determinants of health that impacted care today? How? (Homelessness, low income, unemployed, alcoholism, drug addiction, transportation, low edu. Level, literacy, decrease access to med. care, [facility], rehab)? @ -no Was there de-escalation of care discussed even if they declined? (Discuss DNR or withdrawal of care, Hospice)? @ -no What co-morbidities impacted this encounter? (DM, HTN, Smoking, COPD, CAD, Cancer, CVA, Hep., AIDS, mental health diagnosis, sleep apnea, morbid obesity)? @ -none Was patient admitted / discharged? @ -dc Undiagnosed new problem with uncertain prognosis? @ -no Drug Therapy requiring intensive monitoring for toxicity (Heparin, Nitro, Insulin, Cardizem)? @ -no Were any procedures done? @ -no Diagnosis/symptom? @ -] Acute, or Chronic, or Acute on Chronic? @ -no Uncomplicated (without systemic symptoms) or Complicated (systemic symptoms)? @ -uncomplicated Side effects of treatment? @ -no Exacerbation, Progression, or Severe Exacerbation] @ -no Poses a threat to life or bodily function? @ -no Reevaluation #5: 03/07/23 20:38 Differential Dizziness: Benign paroxysmal positional Vertigo, Menieres disease, otitis media, acoustic neuroma, vertebrobasilar insufficiency, cerebellar stroke, encephalitis, hypovolemic, arrhythmia, coronary artery syndrome, anemia, this is not meant to be an all-inclusive list EKG Findings - EKG Comments: EKG Findings:: EKG is paced 54 QRS 167 QTC 497 Medical Decision Making - Medical Decision Making 77 female DF for evaluation remained ataxic here in the emergency department. Patient has persistent dizziness and will be admitted for neurology to evaluate - Lab Data Result diagrams: 03/07/23 15:08 03/07/23 15:08 Lab Results 03/07/23 03/07/23 03/07/23 Range/Units 15:08 15:08 15:08 WBC 4.8 (3.8-10.6) k/uL RBC 3.97 (3.80-5.40) m/uL Hgb 12.2 (11.4-16.0) gm/dL Hct 36.6 (34.0-46.0) % MCV 92.1 (80.0-100.0) fL MCH 30.8 (25.0-35.0) pg MCHC 33.4 (31.0-37.0) g/dL RDW 13.2 (11.5-15.5) % Plt Count 251 (150-450) k/uL MPV 8.5 Neutrophils % 71 % Lymphocytes % 16 % Monocytes % 8 % Eosinophils % 1 % Basophils % 1 % Neutrophils # 3.4 (1.3-7.7) k/uL Lymphocytes # 0.8 L (1.0-4.8) k/uL Monocytes # 0.4 (0-1.0) k/uL Eosinophils # 0.1 (0-0.7) k/uL Basophils # 0.0 (0-0.2) k/uL PT 11.1 (9.0-12.0) sec INR 1.1 (<1.2) APTT 29.8 (22.0-30.0) sec Sodium 138 (137-145) mmol/L Potassium 3.9 (3.5-5.1) mmol/L Chloride 105 (98-107) mmol/L Carbon Dioxide 26 (22-30) mmol/L Anion Gap 7 mmol/L BUN 13 (7-17) mg/dL Creatinine 0.53 (0.52-1.04) mg/dL Est GFR (CKD-EPI)AfAm >90 (>60 ml/min/1.73 sqM) Est GFR (CKD-EPI)NonAf >90 (>60 ml/min/1.73 sqM) Glucose 107 H (74-99) mg/dL Plasma Lactic Acid Fadi (0.7-2.0) mmol/L Calcium 9.1 (8.4-10.2) mg/dL Phosphorus 3.1 (2.5-4.5) mg/dL Magnesium 2.1 (1.6-2.3) mg/dL Total Bilirubin 0.5 (0.2-1.3) mg/dL AST 29 (14-36) U/L ALT 24 (4-34) U/L Alkaline Phosphatase 82 (38-126) U/L Troponin I (0.000-0.034) ng/mL NT-Pro-B Natriuret Pep pg/mL Total Protein 6.9 (6.3-8.2) g/dL Albumin 4.1 (3.5-5.0) g/dL 03/07/23 03/07/23 03/07/23 Range/Units 15:08 15:08 15:08 WBC (3.8-10.6) k/uL RBC (3.80-5.40) m/uL Hgb (11.4-16.0) gm/dL Hct (34.0-46.0) % MCV (80.0-100.0) fL MCH (25.0-35.0) pg MCHC (31.0-37.0) g/dL RDW (11.5-15.5) % Plt Count (150-450) k/uL MPV Neutrophils % % Lymphocytes % % Monocytes % % Eosinophils % % Basophils % % Neutrophils # (1.3-7.7) k/uL Lymphocytes # (1.0-4.8) k/uL Monocytes # (0-1.0) k/uL Eosinophils # (0-0.7) k/uL Basophils # (0-0.2) k/uL PT (9.0-12.0) sec INR (<1.2) APTT (22.0-30.0) sec Sodium (137-145) mmol/L Potassium (3.5-5.1) mmol/L Chloride (98-107) mmol/L Carbon Dioxide (22-30) mmol/L Anion Gap mmol/L BUN (7-17) mg/dL Creatinine (0.52-1.04) mg/dL Est GFR (CKD-EPI)AfAm (>60 ml/min/1.73 sqM) Est GFR (CKD-EPI)NonAf (>60 ml/min/1.73 sqM) Glucose (74-99) mg/dL Plasma Lactic Acid Fadi 0.8 (0.7-2.0) mmol/L Calcium (8.4-10.2) mg/dL Phosphorus (2.5-4.5) mg/dL Magnesium (1.6-2.3) mg/dL Total Bilirubin (0.2-1.3) mg/dL AST (14-36) U/L ALT (4-34) U/L Alkaline Phosphatase (38-126) U/L Troponin I <0.012 (0.000-0.034) ng/mL NT-Pro-B Natriuret Pep 246 pg/mL Total Protein (6.3-8.2) g/dL Albumin (3.5-5.0) g/dL - EKG Data -: EKG Interpreted by Me (EKG is sinus 66. 214 QRS 90 QTC 420) - Radiology Data Radiology results: report reviewed (CT brain is negative for acute disease), image reviewed Disposition Clinical Impression: Benign paroxysmal positional vertigo, Vertigo, Hypertension, Dizziness Disposition: ADMITTED IP TO THIS HOSP Condition: Fair Is patient prescribed a controlled substance at d/c from ED?: No Time of Disposition: 17:30
[2023-03-07 15:49] LABS: Basophils % (A) 1 %; Eosinophils # (A) 0.1 k/uL (0-0.7); Eosinophils % (A) 1 %; HCT 36.6 % (34.0-46.0); HGB 12.2 gm/dL (11.4-16.0); Lymphocytes # (A) 0.8 k/uL (1.0-4.8); Lymphocytes % (A) 16 %; MCH 30.8 pg (25.0-35.0); MCHC 33.4 g/dL (31.0-37.0); MCV 92.1 fL (80.0-100.0); Mean Platelet Volume 8.5; Monocytes # (A) 0.4 k/uL (0-1.0); Monocytes % (A) 8 %; Neutrophils # (A) 3.4 k/uL (1.3-7.7); Neutrophils % (A) 71 %; Platelet Count 251 k/uL (150-450); RBC 3.97 m/uL (3.80-5.40); RDW 13.2 % (11.5-15.5); WBC 4.8 k/uL (3.8-10.6)
[2023-03-07 15:55] LABS: INR 1.1 (<1.2); Partial Thromboplastin Time 29.8 sec (22.0-30.0); Prothrombin Time 11.1 sec (9.0-12.0)
[2023-03-07 15:56] LABS: ALT 24 U/L (4-34); AST 29 U/L (14-36); African American GFR (CKD) >90 (>60 ml/min/1.73 sqM); Albumin 4.1 g/dL (3.5-5.0); Alkaline Phosphatase 82 U/L (38-126); Anion Gap 7 mmol/L; Blood Urea Nitrogen 13 mg/dL (7-17); Calcium 9.1 mg/dL (8.4-10.2); Carbon Dioxide 26 mmol/L (22-30); Chloride 105 mmol/L (98-107); Glucose 107 mg/dL (74-99); Magnesium 2.1 mg/dL (1.6-2.3); Non-African American GFR(CKD) >90 (>60 ml/min/1.73 sqM); Phosphorus 3.1 mg/dL (2.5-4.5); Potassium 3.9 mmol/L (3.5-5.1); Sodium 138 mmol/L (137-145); Total Bilirubin 0.5 mg/dL (0.2-1.3); Total Protein 6.9 g/dL (6.3-8.2)
--- NOTE | 2023-03-07 16:01 | CT ---
EXAMINATION TYPE: CT brain wo con DATE OF EXAM: 03/07/2023 HISTORY: AMS. hx of brain aneurysm. CT DLP: 1141 mGycm. Automated Exposure Control for Dose Reduction was Utilized. TECHNIQUE: CT scan of the head is performed without contrast. COMPARISON: Prior CT brain September 12, 2021. FINDINGS: Susceptibility artifact from aneurysm clip in the region of the anterior communicating ar varghese is redemonstrated. There is no obvious acute intracranial hemorrhage or midline shift identified . There is mild diffuse ventricular and sulcal prominence redemonstrated. There is mild low-attenuat ion in the periventricular white matter redemonstrated. The globes are intact and the visualized sin uses are clear. IMPRESSION: No acute intracranial hemorrhage or midline shift. Prior aneurysm coiling redemonstrated . No significant change from prior.
[2023-03-07] MEDS ORDERED: ONDANSETRON 4 MG/2 ML VIAL IVP STA (16:37)
[2023-03-07] MEDS ORDERED: MECLIZINE 12.5 MG TAB PO STA (16:37)
[2023-03-07] MEDS ORDERED: diphenhydrAMINE 50 MG/ML 1 ML VIAL IVP STA (16:37)
[2023-03-07] MEDS ORDERED: ONDANSETRON 4 MG/2 ML VIAL IVP PRN (17:42)
[2023-03-07] MEDS ORDERED: NALOXONE 0.4 MG/ML 1 ML VIAL IV PRN (17:42)
[2023-03-07] MEDS ORDERED: LABETALOL 5 MG/ML VIAL MDV IVP STA (18:24)
[2023-03-07] MEDS ORDERED: traMADol 50 MG TAB PO PRN (18:45)
[2023-03-07] MEDS ORDERED: MECLIZINE 25 MG TAB PO PRN (18:46)
[2023-03-07] MEDS: carvediloL 12.5 MG TAB PO SCH (22:18)
[2023-03-07] MEDS: SODIUM CHLORIDE 0.9% 1,000 ML IV SCH (22:18)
[2023-03-07] MEDS: cycloSPORINE 0.05% OPHTH 0.4 ML DROPERETTE BOTH EYES SCH (22:31)
[2023-03-07 23:13] LABS: Amorphous Sediment,Urine Rare /hpf; Appearance,Urine Clear (Clear); Bilirubin,Urine Negative (Negative); Blood,Urine Negative (Negative); Color,Urine Yellow; Glucose,Urine (UA) Trace (Negative); Hyaline Casts,Urine 11 /lpf (0-2); Ketones,Urine Negative (Negative); Leukocyte Esterase,Urine Small (Negative); Mucus,Urine Occasional /hpf; Nitrite,Urine Negative (Negative); Protein,Urine Negative (Negative); RBC,Urine 1 /hpf (0-5); Specific Gravity,Urine 1.015 (1.001-1.035); Squamous Epithelial Cell,Urine 1 /hpf (0-4); Urobilinogen,Urine <2.0 mg/dL (<2.0); WBC,Urine 11 /hpf (0-5)
[2023-03-07 23:27] VITALS: RESP 16
[2023-03-08] MEDS: carvediloL 12.5 MG TAB PO SCH ×2 (06:09→18:17)
[2023-03-08] MEDS: LOSARTAN 50 MG TAB PO SCH (09:10)
[2023-03-08] MEDS: ASPIRIN 81 MG PO SCH (09:11)
[2023-03-08] MEDS: SODIUM CHLORIDE 0.9% 1,000 ML IV SCH ×2 (09:11→21:42)
[2023-03-08] MEDS: FAMOTIDINE 20 MG TAB PO SCH (09:11)
[2023-03-08] MEDS: cycloSPORINE 0.05% OPHTH 0.4 ML DROPERETTE BOTH EYES SCH ×2 (09:11→21:43)
--- NOTE | 2023-03-08 13:22 | P.CNNES ---
History of Present Illness Consult date: 03/08/23 Requesting physician: Jitendra Espinoza Reason for Consult: Vertigo ?CVA History of Present Illness: Patient is a 77-year-old female with long-standing history of dizziness, came to the hospital by ambulance yesterday at 2:21 PM for new onset vertigo. Patient states that she has very long-standing history of dizziness. She gets plugged feeling in the left ear, and it crackles and snaps and then she feels dizzy. She could not tell me how often she gets this dizzy feeling and how long does it last. Patient states that she has learned to live with it. She denies any tinnitus however. She has seen Dr. aGrnett's and Dr. Garcia, and they recommended her to use Flonase then she feels dizzy. Patient does have significant chronic hearing loss particularly in the left ear. Patient states that yesterday at around 12:30 PM, she felt the plugged feeling in the left ear, like there was water or fluid in the left ear. She then started feeling dizzy, and then everything started spinning around. She felt that if she can lay down she will feel better. She lives in the bed, that everything started turning around. She called the ambulance and was brought to the hospital. There was no slurred speech, facial droop, double vision, loss of vision, any focal weakness, numbness or tingling or any strokelike symptoms. Denies any syncope, passing out, or fall. As per EMS flow sheet, when they arrived, patient was in the bedroom laying in the bed on her right side. Patient acknowledged EMS presence and was alert and oriented 4. 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 Patient complains of having a frontal headache as well but it has subsided. She does have history of migraine headaches. Patient has history of brain aneurysm so her called EMS. Patient denied any chest pain, shortness of breath or diaphoresis. 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 Blood sugar was 10 9 mg/dL. Patient was placed in the stretcher, and the dizziness returned. Her blood pressure at the scene was 180/100, which went up to 194/103. Pulse rate 80, respiration 14, saturation 96%. Vital signs on arrival blood pressure 180/107, blood tests with normal CBC, PT/PTT, normal CMP, troponin, UA with small amount of leukocyte esterase and [address] head revealed no acute intracranial hemorrhage or midline shift. Her aneurysm coiling redemonstrated. No significant change from prior. I personally reviewed CT head, agree with the findings. EKG shows sinus rhythm with first-degree AV block. Patient has history of cerebral aneurysm that was ruptured, but fortunately underwent treatment at [facility] in 2011. She had a coiling in one aneurysm and stenting in the other. Patient states that her dad also has severe hearing issues. Patient has a lot of ALLERGIES and sinus issues. She gets headaches from sinuses off and on. She has hyper-thyroidism. She has fairly significant kyphoscoliosis, uses cane for walking. Patient denies any tobacco use, alcohol use. No family history of cerebral aneurysms. Patient takes trama dol, aspirin 81 mg, methimazole, losartan and Coreg. Review of Systems Constitutional: Reports weight loss, Denies chills, Denies fever Eyes: bilateral blurred vision, bilateral dry eye, denies diplopia, denies pain, denies loss of vision Ears: left: earache, bilateral: decreased hearing, deny: tinnitus Ears, nose, mouth and throat: Reports post-nasal drip, Reports vertigo, Denies h eadache, Denies sore throat Cardiovascular: Reports lightheadedness, Reports palpitations, Denies chest pain, Denies shortness of breath, Denies syncope Respiratory: Reports excessive sputum, Denies cough Gastrointestinal: Reports nausea, Denies abdominal pain, Denies diarrhea, Denies vomiting Genitourinary: Denies dysuria, Denies hematuria Musculoskeletal: Reports gait dysfunction, Reports low back pain, Reports neck pain, Denies myalgias Integumentary: Denies pruritus, Denies rash Neurological: Reports as per HPI Psychiatric: Reports anxiety, Denies depression Endocrine: Reports weight change, Denies fatigue Past Medical History Past Medical History: GERD/Reflux, Hypertension, Osteoarthritis (OA) Additional Past Medical History / Comment(s): Heart palpitations, used a heart monitor for a short time, swelling in lower extrem's. Blood in stool. Problems with constipation. Osteoporosis. Sjogren's Syndrome. History of Any Multi-Drug Resistant Organisms: None Reported Past Surgical History: Hernia Repair, Hysterectomy, Joint Replacement Additional Past Surgical History / Comment(s): Surgery for brain aneurysm x 2. Partial thyroidectomy. Past Anesthesia/Blood Transfusion Reactions: No Reported Reaction Past Psychological History: No Psychological Hx Reported Smoking Status: Former smoker Past Alcohol Use History: Occasional Past Drug Use History: None Reported - Past Family History Mother Family Medical History: No Reported History Medications and Allergies Home Medications Medication Instructions Recorded Confirmed Type cycloSPORINE 0.05% OPHTH SOLN 1 drop BOTH EYES DIRECTED 10/20/18 03/07/23 History [Restasis] traMADol HCL [Ultram] 50 mg PO BID PRN 10/20/18 03/07/23 History Aspirin EC [Ecotrin Low Dose] 81 mg PO DAILY 09/12/21 03/07/23 History methIMAzole [Tapazole] 5 mg PO W/SUPPER 09/12/21 03/07/23 History Losartan Potassium 100 mg PO DAILY 03/07/23 03/07/23 History carvediloL [Coreg*] 12.5 mg PO BID 03/07/23 03/07/23 History Meclizine [Antivert] 12.5 mg PO TID PRN #15 tab 03/09/23 Rx amLODIPine [Norvasc] 10 mg PO DAILY #30 tab 03/09/23 Rx Allergies Allergy/AdvReac Type Severity Reaction Status Date / Time Penicillins Allergy Rash/Hives Verified 03/07/23 15:09 Physical Examination - Vital Signs Vital Signs: Vital Signs Temp Pulse Pulse Resp BP BP Pulse Ox 03/08/23 07:45 98.1 F 66 16 180/94 98 03/08/23 02:31 97.9 F 73 16 158/87 97 03/08/23 02:15 74 16 03/07/23 21:17 97.5 F L 74 16 166/84 100 03/07/23 20:47 74 18 149/97 96 03/07/23 18:00 72 18 96 03/07/23 17:10 70 18 185/106 100 03/07/23 14:47 97.8 F 65 20 180/107 96 Intake and Output 03/07/23 03/08/23 03/08/23 22:59 06:59 14:59 Other: Voiding Method Toilet # Voids 1 2 Weight 47.174 kg Patient is an elderly female, very pleasant, in no acute distress. Patient is alert awake oriented to time place and person. Speech and language functions are normal. Patient can name and repeat very well. No aphasia or dysarthria. Attention, concentration and fund of knowledge is adequate. On cranial nerve examination, pupils are equal, round and reacting to light, visual royal are full on confrontation, with no neglect on double simultaneous stimulation. Extraocular muscles are intact with no nystagmus. Face is symmetric, tongue protrudes to the midline. Palatal elevation and sensation normal, hearing is very severely decreased in the left ear, moderately in the right ear and shoulder shrug normal, facial sensation normal. On muscle strength testing, there is no pronator drift and the strength is normal in arms and legs distally and proximally. Hip flexion are 5-bilaterally. Deep tendon reflexes are symmetric 1+ at the biceps, 1+ brachioradialis, 2+ at the knees, 2 ankles and plantars downgoing bilaterally. Sensory to touch is equal with no neglect on double simultaneous stimulation. Cerebellar function showed no ataxia for [id number] testing. No dysdiadochokinesia. Patient has very mild ataxia for [id number] testing on the left side. Tone and bulk of muscles normal. Gait patient walked slightly unsteady, which is baseline. She has very pronounced kyphoscoliosis. She uses cane for walking. Her gait is stable, not any further worse than baseline. On general examination, there is no carotid bruit or murmur, S1-S2 audible. Patient has a prominent blood vessel in the right side of the neck which is not carotid as checked by ultrasounds. Chest is clear on consultation. Abdomen is soft nontender. No organomegaly, bowel sounds present. Peripheral pulses are present. No edema. Results - Laboratory Findings CBC and BMP: 03/09/23 05:44 03/07/23 15:08 Abnormal Lab Findings: Abnormal Labs 03/07/23 03/07/23 03/07/23 15:08 15:08 22:45 Lymphocytes # 0.8 L Glucose 107 H Urine Glucose (UA) Trace H Ur Leukocyte Esterase Small H Urine WBC 11 H Amorphous Sediment Rare H Hyaline Casts 11 H Urine Mucus Occasional H Assessment and Plan Assessment: * Vertigo, most likely due to peripheral vestibular dysfunction. Patient has long-standing history of episodes of clicking in the ears followed by dizziness, that lasts for hours. Patient has significant hearing loss chronic, left more than right. Rule out Mnire's disease. Patient has no focal symptoms, no evidence of stroke/TIA. * Hypertension, recently worse, which may have contributed to vertigo. * History of cerebral aneurysm, status post coiling and stenting in 2012. * History of kyphoscoliosis, uses cane. * Hypothyroidism * Chronic sinus issues, ALLERGIES and with sinus headaches. Plan: * Patient's vertigo resolved in around 7-8 hours. At present she has baseline dizziness, which she has for years. * Recommend meclizine as needed for dizziness. * If the vertigo recurs, recommend follow-up with ENT specialist as an outpatient. * Patient had a carotid Doppler performed recently at her cardiology office, which was normal. No need to repeat. * Optimize control of blood pressure. Target < 130/80 * Continue aspirin 81 mg daily. * Check B12, folate. * Neurologically clear if he remains stable overnight. Thank you for the consult. Time with Patient: Greater than 30
[2023-03-08] MEDS: amLODIPine 10 MG TAB PO SCH (15:30)
[2023-03-08] MEDS: MECLIZINE 12.5 MG TAB PO SCH ×3 (15:31→21:43)
--- NOTE | 2023-03-08 15:34 | HP ---
HISTORY AND PHYSICAL CHIEF COMPLAINT: Dizziness. HISTORY OF PRESENT ILLNESS: This is a 77-year-old woman with a past medical history of multiple medical problems including hypertension and DJD, was complaining of dizziness and spinning sensation. The patient came to [facility]. Neurology is following the patient closely and peripheral vascular dysfunction is suspected. The patient also had high blood pressure also. No chest pain or palpitations. PAST MEDICAL HISTORY: Reviewed and includes hypertension and GERD. Rest of the history and rest of the chart also reviewed. HOME MEDICATIONS: Reviewed and include Coreg. Doses and rest of medications noted. ALLERGIES: Penicillin. FAMILY HISTORY: No history of heart disease or strokes in the family. SOCIAL HISTORY: Previous history of smoking. REVIEW OF SYSTEMS: Fourteen-point review is negative except as mentioned earlier. PHYSICAL EXAMINATION: VITAL SIGNS: Pulse 73, blood pressure 158/87, respirations 16. HEENT: Conjunctivae normal. NECK: No jugular venous distention. CARDIOVASCULAR: S1 and S2. RESPIRATIONS: Diminished at the bases. Scattered rhonchi. No crackles. ABDOMEN: Soft, nontender. LEGS: No edema. NERVOUS SYSTEM: No focal deficit. LABORATORY DATA: Reviewed. ASSESSMENT: 1. Dizziness, possibly peripheral vascular dysfunction. 2. Hypertension. 3. Degenerative joint disease. 4. History of palpitations. 5. Multiple medical issues. RECOMMENDATIONS: This is a 77-year-old woman, who presented with multiple complex medical issues. We will monitor the patient closely. I would recommend to continue the current medications and symptomatic treatment. Otherwise, I would recommend meclizine around the clock as well as increased ambulation. Monitor and adjust the blood pressure medications. Guarded prognosis. Further recommendations to follow. MMODL / IJN: [id number] /
[2023-03-08] MEDS ORDERED: methIMAzole 5 MG TAB PO SCH (17:30)
[2023-03-09 03:59] VITALS: TEMP 98.2
[2023-03-09] MEDS: carvediloL 12.5 MG TAB PO SCH (06:13)
[2023-03-09] MEDS: MECLIZINE 12.5 MG TAB PO SCH (08:39)
[2023-03-09] MEDS: LOSARTAN 50 MG TAB PO SCH (08:39)
[2023-03-09] MEDS: FAMOTIDINE 20 MG TAB PO SCH (08:39)
[2023-03-09] MEDS: cycloSPORINE 0.05% OPHTH 0.4 ML DROPERETTE BOTH EYES SCH (08:39)
[2023-03-09] MEDS: amLODIPine 10 MG TAB PO SCH (08:39)
[2023-03-09] MEDS: ASPIRIN 81 MG PO SCH (08:39)
[2023-03-09] MEDS: SODIUM CHLORIDE 0.9% 1,000 ML IV SCH (08:40)
[2023-03-09 08:53] VITALS: BP 160/85; PULSE 60
[2023-03-09 09:18] LABS: Basophils # (A) 0.07 X 10*3/uL (0.00-0.10); Basophils % (A) 1.3 %; Eosinophils # (A) 0.07 X 10*3/uL (0.04-0.35); Eosinophils % (A) 1.3 %; HCT 36.5 % (37.2-46.3); HGB 11.6 g/dL (12.0-15.0); Immature Grans, Automated 0.2 %; Lymphocytes # (A) 1.43 X 10*3/uL (0.90-5.00); Lymphocytes % (A) 26.4 %; MCH 30.2 pg (27.0-32.0); MCHC 31.8 g/dL (32.0-37.0); MCV 95.1 fL (80.0-97.0); Mean Platelet Volume 10.8 fL (9.5-12.2); Monocytes % (A) 12.9 %; NRBC Per 100 WBC 0 /100 WBCS (0.0-0.0); Neutrophils # (A) 3.14 X 10*3/uL (1.80-7.70); Neutrophils % (A) 57.9 %; Platelet Count 240 X 10*3/uL (140-440); RBC 3.84 X 10*6/uL (4.10-5.20); RDW 13.5 % (11.5-14.5); WBC 5.42 X 10*3/uL (4.50-10.00)
[2023-03-09 10:34] LABS: African American GFR (CKD) 109.7 (60.0-200.0); Anion Gap 9.7 mmol/L (10.00-18.00); BUN/Creat Ratio 18.2 Ratio (12.00-20.00); Blood Urea Nitrogen 9.1 mg/dL (9.0-27.0); Calcium 9.1 mg/dL (8.7-10.3); Carbon Dioxide 25.3 mmol/L (20.0-27.5); Non-African American GFR(CKD) 94.7 (60.0-200.0); Potassium 3.9 mmol/L (3.5-5.5)
--- NOTE | 2023-03-09 12:34 | DS ---
DISCHARGE SUMMARY FINAL DIAGNOSES: 1. Dizziness and vertigo, possibly peripheral vestibular dysfunction. 2. Hypertension. 3. Degenerative joint disease. 4. Multiple medical issues. DISCHARGE DISPOSITION: The patient will be discharged in stable condition with guarded prognosis. HISTORY OF PRESENT ILLNESS: This is a 77-year-old woman with a past medical history of multiple episodes of dizziness. Neurology saw the patient and was thought to have peripheral vestibular dysfunction and vertigo. The patient improved significantly. PHYSICAL EXAMINATION: VITAL SIGNS: Stable. CARDIOVASCULAR: S1 and S2. ABDOMEN: Soft. NERVOUS SYSTEM: Nonfocal. DISCHARGE MEDICATIONS: Resume the home medications. 1. Norvasc 10 mg daily. 2. Antivert 12.5 mg t.i.d. p.r.n. FOLLOWUP: With Dr. Green. Follow up with Neurology as recommended. MMODL / IJN: [id number] /
== END 2023-03-09 13:38 | disposition home or self-care (01) ==
LOC: EC 14:41 → 6NMEDSUR 17:43
PROVIDERS: ADMIT Hospitalist; ATTEND Hospitalist
DX: R42 Dizziness and giddiness (principal); I10 Essential (primary) hypertension; R11.0 Nausea; R00.2 Palpitations; M35.00 Sjogren syndrome, unspecified; K21.9 Gastro-esophageal reflux disease without esophagitis; I44.0 Atrioventricular block, first degree; J32.9 Chronic sinusitis, unspecified; M19.90 Unspecified osteoarthritis, unspecified site; K59.00 Constipation, unspecified; M81.0 Age-related osteoporosis without current pathological fracture; E89.0 Postprocedural hypothyroidism; H91.92 Unspecified hearing loss, left ear; G43.909 Migraine, unspecified, not intractable, without status migrainosus; M41.9 Scoliosis, unspecified; Z79.82 Long term (current) use of aspirin; Z79.899 Other long term (current) drug therapy; Z88.0 Allergy status to penicillin; Z91.09 Other allergy status, other than to drugs and biological substances; Z87.19 Personal history of other diseases of the digestive system; Z90.710 Acquired absence of both cervix and uterus; Z87.891 Personal history of nicotine dependence; Z86.79 Personal history of other diseases of the circulatory system; Z95.828 Presence of other vascular implants and grafts; Z96.60 Presence of unspecified orthopedic joint implant; Z98.890 Other specified postprocedural states
CPT/HCPCS: 96361 ×4; 96374; 96375; 99285; 36415; 93005; 83880; 80053; 80048; 82607; 82746; 83605; 83735; 84100; 84484; 85025 ×2; 85610; 85730; 81001; 70450; G0378 ×3; J1200; J2405

== ENCOUNTER → 2023-04-08 | Outpatient (CLI) | payer MEDICARE, BC ==
[2023-04-09 05:24] LABS: HCT 37.2 % (37.2-46.3); HGB 11.5 d/dL (12.0-15.0); MCH 29.9 pg (27.0-32.0); MCHC 30.9 d/dL (32.0-37.0); MCV 96.9 FL (80.0-97.0); Mean Platelet Volume 11.1 FL (9.5-12.2); NRBC Per 100 WBC 0 X 10*3/uL (0.00-0.01); Platelet Count 247 X 10*3/uL (140-440); RBC 3.84 X 10*6/uL (4.10-5.20); RDW 14.1 % (11.5-14.5); WBC 4.99 X 10*3/uL (4.50-10.00)
[2023-04-09 12:28] LABS: ALT 27 U/L (8-44); AST 26 U/L (13-35); Albumin 4.4 d/dL (3.8-4.9); Albumin/Globulin Ratio 1.83 Ratio (1.60-3.17); Alkaline Phosphatase 80 U/L (41-126); BUN/Creat Ratio 27.17 Ratio (12.00-20.00); Blood Urea Nitrogen 16.3 mg/dL (9.0-27.0); Calcium 9.7 mg/dL (8.7-10.3); Carbon Dioxide 26.1 mmol/L (21.6-31.8); Chloride 104 mmol/L (96-109); Globulin 2.4 d/dL (1.6-3.3); Glucose 82 mg/dL (70-110); Potassium 4.7 mmol/L (3.5-5.5); Sodium 141 mmol/L (135-145); Total Bilirubin 0.4 mg/dL (0.3-1.2); Total Protein 6.8 d/dL (6.2-8.2)
== END | disposition home or self-care (01) ==
LOC: LABWHC1 11:54
PROVIDERS: ATTEND Internal Medicine
DX: E05.90 Thyrotoxicosis, unspecified without thyrotoxic crisis or storm (principal)
CPT/HCPCS: 36415; 80053; 84439; 84443; 84481; 85027

== ENCOUNTER → 2024-05-25 | Outpatient (CLI) | payer MEDICARE, BC | END | disposition home or self-care (01) | LOC: LABPRL 15:10 | PROVIDERS: ATTEND Family Medicine | DX: E55.9 Vitamin D deficiency, unspecified (principal); M35.00 Sjogren syndrome, unspecified; M54.2 Cervicalgia | CPT/HCPCS: 80053; 82306; 83036; 84439; 84443; 85025 ==

== ENCOUNTER → 2024-06-28 | Outpatient (CLI) | payer MEDICARE, BC ==
--- NOTE | 2024-06-28 12:31 | XR ---
EXAMINATION TYPE: XR cervical spine comp DATE OF EXAM: 06/28/2024 CLINICAL HISTORY: pain COMPARISON: NONE TECHNIQUE: Frontal, lateral, oblique, swimmers, and open mouth view of the cervical spine are obtaine d. FINDINGS: The cervical spine is visualized in its entirety from C1 thru the top of T1 level. It is s atisfactory in alignment without evidence of acute fracture or dislocation. The pre-vertebral soft t issue appears within normal limits. Moderate to multilevel degenerative disc space narrowing. The C1- C2 articulation is unremarkable on the open mouth view. The oblique images are within normal limits. IMPRESSION: No acute fracture or dislocation is seen in the cervical spine.ICD 10 NO FRACTURE, INITI AL EVALUATION
== END | disposition home or self-care (01) ==
LOC: RADXRMAIN 11:56
PROVIDERS: ATTEND Family Medicine
DX: M50.30 Other cervical disc degeneration, unspecified cervical region (principal)
CPT/HCPCS: 72050

== ENCOUNTER → 2024-09-28 | Outpatient (CLI) | payer MEDICARE, BC ==
[2024-09-28 19:27] LABS: HCT 37.4 % (37.2-46.3); MCH 31.5 pg (27.0-32.0); MCHC 32.1 g/dL (32.0-37.0); MCV 98.2 FL (80.0-97.0); Mean Platelet Volume 10.4 FL (9.5-12.2); NRBC Per 100 WBC 0 X 10*3/uL (0.00-0.01); Platelet Count 264 X 10*3/uL (140-440); RBC 3.81 X 10*6/uL (4.10-5.20); WBC 4.96 X 10*3/uL (4.50-10.00)
[2024-09-28 21:21] LABS: T4, Free (Free Thyroxine) 1.36 ng/dL (0.80-1.80)
== END | disposition home or self-care (01) ==
LOC: LABWHC1 14:15
PROVIDERS: ATTEND Internal Medicine
DX: E05.90 Thyrotoxicosis, unspecified without thyrotoxic crisis or storm (principal); E55.9 Vitamin D deficiency, unspecified
CPT/HCPCS: 36415; 82306; 84439; 84443; 84450; 84460; 84481; 85027